=== PATIENT | male | born 1995 | race Two or more races ===

== ENCOUNTER 2017-02-07 13:16 | Emergency (ER) | payer BC ==
[2017-02-07] MEDS ORDERED: HYDROcodone/APAP 10/325 1 TAB TABLET ONE (13:27)
[2017-02-07] MEDS ORDERED: MORPHINE SULFATE 4 MG/ML DISP.SYRIN. IV ONE ×2 (13:30→14:30)
[2017-02-07] MEDS ORDERED: HYDROcodone/APAP 5/325MG 1 TAB TABLET PO ONE (13:30)
[2017-02-07] MEDS ORDERED: MORPHINE SULFATE 10 MG/ML VIAL. ONE (13:30)
--- NOTE | 2017-02-07 13:55 | RAD ---
Examination: 2 views of the right femur and 3 views of the right knee History: History of chain saw injury to the distal femur Comparison: None available. Findings: The femoral head is within the acetabulum. The alignment of the knee joint grossly appears unremarkable. There is a soft tissue laceration in the in the medial aspect of the distal thigh. Impression 1. No acute osseous findings. 2. Soft tissue laceration medial aspect of the distal thigh.
[2017-02-07] MEDS ORDERED: LIDOCAINE 1% / SOD BICARB 8.4% 20 ML VIAL. IJ ONE ×2 (14:12→14:15)
[2017-02-07] MEDS ORDERED: MORPHINE SULFATE 4 MG/ML DISP.SYRIN. IM ONE (14:30)
[2017-02-07] MEDS ORDERED: NAPR375T3 PO (15:08)
[2017-02-07] MEDS ORDERED: HYDR-971 PO (15:08)
--- NOTE | 2017-02-07 15:08 | PHYS DOC ---
Adult General Chief Complaint Chief Complaint: TRAUMA ACTIVATION HPI HPI Patient is a 21 year old male with cut at distal R tigh with [place]. No other injury, pt is able to range leg without limitation Review of Systems Review of Systems Constitutional: Denies fever or chills [] Eyes: Denies change in visual acuity, redness, or eye pain [] Respiratory: Denies cough or shortness of breath [] Cardiovascular: No chest pain GI: Denies abdominal pain, nausea, vomiting, bloody stools or diarrhea [] Musculoskeletal: Denies back pain or joint pain. Integument: Laceration at distal right thigh. Neurologic: Denies focal weakness or sensory changes [] Current Medications Current Medications Current Medications Medications (Trade) Dose Ordered Sig/Darlene Start Time Stop Time Status Last Admin Dose Admin Acetaminophen/ Hydrocodone Bitart (Lortab 10/325) 1 tab STK-MED ONCE 02/07/17 13:27 02/07/17 13:31 DC Acetaminophen/ Hydrocodone Bitart (Lortab 5/325) 1 tab 1X ONCE 02/07/17 13:30 02/07/17 14:23 DC Lidocaine/Sodium Bicarbonate (Buffered Lidocaine 1%) 20 ml STK-MED ONCE 02/07/17 14:12 02/07/17 14:13 DC Morphine Sulfate 4 mg 1X ONCE 02/07/17 14:30 02/07/17 14:38 DC 02/07/17 14:21 4 MG Allergies Allergies Allergies Coded Allergies Type Severity Reaction Last Updated Verified No Known Drug Allergies 02/07/17 No Physical Exam Physical Exam Constitutional: Well developed, well nourished, no acute distress, non-toxic appearance. [] HENT: Normocephalic, atraumatic, Eyes: EOMI, conjunctiva normal, no discharge. [] Neck: Normal range of motion, no tenderness Cardiovascular:Heart rate regular rhythm, no murmur, no chest pain or deformity Lungs & Thorax: Bilateral breath sounds clear to auscultation, no tachypnea Abdomen: Bowel sounds normal, soft, no tenderness, Skin: Warm, dry, no erythema, no rash.Exception is 7 cm laceration distal right thigh. NO signs of muscle or tendon injury. Mild oozing of blood, no signs of arterial bleeding Back: No tenderness, no CVA tenderness. Normal alignment, no step offs Extremities: No tenderness, no cyanosis, no clubbing, ROM intact, distal NVI Neurologic: Alert and oriented X 3, normal motor function, normal sensory function, no focal deficits noted. Patient is able to exert FROM on right LE without limitation. Psychologic: Affect normal, judgement normal, mood normal. [] Current Patient Data Vital Signs Vital Signs Date Time Temp Pulse Resp B/P (MAP) Pulse Ox O2 Delivery O2 Flow Rate FiO2 02/07/17 14:21 16 EKG EKG [] Radiology/Procedures Radiology/Procedures no signs of fracture[] Course & Med Decision Making Course & Med Decision Making Pertinent Labs and Imaging studies reviewed. (See chart for details) Indication: 7 cm laceration right distal thigh Procedure: The patient was placed in the appropriate position and anesthesia around the wound was applied with 1% lidocaine, approximately 8ml. The area was previously cleaned with copious irrigation, minimal amount of debrieding done. The laceration was closed with 3-0 nylon 6 stitches, and 4-0 nylon 3 stitches.The wound area was then dressed with gauze. Total repaired wound length: 7 cm Other Items: non contaminated wound The patient tolerated the procedure well Complications:none Total time: 25 minutes [] Dragon Disclaimer Dragon Disclaimer This electronic medical record was generated, in whole or in part, using a voice recognition dictation system. Departure Departure Impression: Primary Impression: Laceration Disposition: 01 HOME, SELF-CARE Condition: IMPROVED Referrals: EDUARDA LEMUS (PCP) follow up with your pcp for recheck in 2-4 days. Sutures are to be removed in 10 Days. Use crutches for comfort for 2-3 days. Patient Instructions: Suture Removal-Brief Scripts Naproxen (NAPROXEN) 375 Mg Tablet 1 TAB PO TID for 5 Days, #15 TAB 5 Refills Prov: Sascha SINGH MD 02/07/17 Hydrocodone/Apap 5-325 (NORCO 5-325 TABLET) 1 Each Tablet 1 TAB PO TID for 3 Days, #9 TAB Prov: Sascha SINGH MD 02/07/17 Sascha SINGH MD Feb 07, 2017 15:08
[2017-02-07] MEDS ORDERED: TETANUS AND DIPHTHERIA TOX/PF 0.5 ML DISP.SYRIN. VAX IM ONE (15:15)
== END 2017-02-07 15:10 | disposition home or self-care (01) ==
LOC: ER 13:16
DX: S71.111A Laceration without foreign body, right thigh, initial encounter (principal); W29.3XXA Contact with powered garden and outdoor hand tools and machinery, initial encounter; Y93.89 Activity, other specified; Y92.89 Other specified places as the place of occurrence of the external cause; Y99.8 Other external cause status
CPT/HCPCS: 12002; 73552; 73562; 90471; 90714; 96374; 96376; 99284; J2270